=== PATIENT | male | born 1960 | race African-American/Black ===

== ENCOUNTER 2022-05-05 12:18 | Observation (INO) ==
[2022-05-05 12:44] LABS: Basophils % 0.5 %; Eosinophils # 0.2 K/mcL (0.0-0.6); Eosinophils % 2.8 %; Hematocrit 49.6 % (37.5-50.1); Immature Granulocytes % 0.5 % (0-4); Lymphocytes # 1.2 K/mcL (0.6-4.6); Lymphocytes % 15.8 %; Mean Corpuscular HGB Conc 32.3 g/dL (31.6-35.5); Mean Corpuscular Hemoglobin 28.5 pg (28.0-33.3); Mean Corpuscular Volume 88.3 fL (83.0-100.0); Mean Platelet Volume 11.1 fL (9.4-12.4); Monocytes # 0.6 K/mcL (0.0-1.3); Monocytes % 8.1 %; Neutrophils # 5.7 K/mcL (1.6-8.9); Platelet Count 168 K/mcL (140-400); Red Blood Count 5.62 M/mcL (4.19-5.50); Segmented Neutrophils % 72.3 %; White Blood Count 7.9 K/mcL (4.3-11.1)
[2022-05-05 13:06] LABS: BUN/Creatinine Ratio 15 (6-26); Blood Urea Nitrogen 23 mg/dL (8-23); Calcium 8.9 mg/dL (8.6-10.3); Carbon Dioxide 26 mEq/L (23-29); Chloride 105 mEq/L (98-107); Glucose 108 mg/dL (70-105); Osmolality,Calculated 290 (280-300); Potassium 3.9 mEq/L (3.5-5.1); Sodium 138 mEq/L (136-145); Troponin I < 0.03 ng/mL (< 0.04); eGFR For African Americans 56 (> 60); eGFR For Non-African Americans 46 (> 60)
[2022-05-05] MEDS ORDERED: Nitroglycerin 0.4 MG TAB.SUBL SL PRN (14:12)
[2022-05-05] MEDS ORDERED: Perflutren Lipid Microsphere 1.3 ML in 0.9 % Sodium Chloride 8.7 ML IVP PRN (14:12)
[2022-05-05] MEDS ORDERED: Ondansetron 4 MG/2 ML VIAL IVP PRN (14:12)
[2022-05-05] MEDS ORDERED: Aspirin 81 MG TAB.CHEW PO SCH (14:15)
[2022-05-05 19:38] LABS: Amphetamine Screen,Urine Negative ng/mL (Cutoff=1000); Barbiturate Screen,Urine Negative ng/mL (Cutoff=200); Benzodiazepines Screen,Urine Negative ng/mL (Cutoff=200); Cannabinoid Screen,Urine Positive ng/mL (Cutoff = 50); Cocaine Screen,Urine Negative ng/mL (Cutoff= 300); Opiate Screen,Urine Negative ng/mL (Cutoff=300); Phencyclidine Screen,Urine Negative ng/mL (Cutoff=25)
[2022-05-05] MEDS: Gabapentin 300 MG CAPSULE PO SCH (21:01)
[2022-05-05] MEDS: Temazepam 15 MG CAPSULE PO SCH (21:03)
[2022-05-06 03:33] LABS: Basophils # 0.1 K/mcL (0.0-0.2); Basophils % 0.8 %; Eosinophils # 0.3 K/mcL (0.0-0.6); Hematocrit 52.2 % (37.5-50.1); Hemoglobin 16.2 g/dL (12.9-16.9); Immature Granulocytes % 0.4 % (0-4); Lymphocytes # 1.9 K/mcL (0.6-4.6); Lymphocytes % 26.2 %; Mean Corpuscular Hemoglobin 27.6 pg (28.0-33.3); Mean Corpuscular Volume 88.9 fL (83.0-100.0); Mean Platelet Volume 10.9 fL (9.4-12.4); Monocytes # 0.7 K/mcL (0.0-1.3); Monocytes % 9.1 %; Neutrophils # 4.3 K/mcL (1.6-8.9); Platelet Count 168 K/mcL (140-400); Red Blood Count 5.87 M/mcL (4.19-5.50); Red Cell Distribution Width 15.1 % (11.5-14.5); Segmented Neutrophils % 59.5 %; White Blood Count 7.2 K/mcL (4.3-11.1)
[2022-05-06 03:42] LABS: Prothrombin Time 11.5 Seconds (9.4-12.1)
[2022-05-06 03:52] LABS: Albumin 4.1 g/dL (3.5-5.7); Albumin/Globulin Ratio 1.8 (1.1-2.2); Bilirubin,Total 0.7 mg/dL (0.3-1.0); Calcium 9.3 mg/dL (8.6-10.3); Globulin 2.3 g/dL (2.4-3.5); Potassium 4.2 mEq/L (3.5-5.1); Total Protein 6.4 g/dL (6.4-8.9)
[2022-05-06] MEDS ORDERED: Regadenoson 0.4 MG/5 ML SYRINGE IVP ONE (06:13)
[2022-05-06] MEDS: 0.9 % Sodium Chloride 1,000 ML IVC SCH ×2 (09:08→20:43)
[2022-05-06] MEDS: Aspirin 81 MG TAB.CHEW PO SCH (09:08)
[2022-05-06] MEDS: Gabapentin 300 MG CAPSULE PO SCH ×2 (09:09→20:42)
[2022-05-06] MEDS: ALPRAZolam 0.25 MG TABLET PO PRN (18:30)
[2022-05-06] MEDS: Temazepam 15 MG CAPSULE PO SCH (20:40)
[2022-05-06] MEDS ORDERED: *HR* Heparin 5,000 UNIT/ML VIAL IVP PRN ×2 (21:36)
[2022-05-06] MEDS ORDERED: *HR* Heparin 5,000 UNIT/ML VIAL IVP ONE (21:36)
[2022-05-06 22:18] LABS: Hematocrit 48.5 % (37.5-50.1); Hemoglobin 15.7 g/dL (12.9-16.9); Mean Corpuscular HGB Conc 32.4 g/dL (31.6-35.5); Mean Corpuscular Hemoglobin 28.2 pg (28.0-33.3); Mean Corpuscular Volume 87.2 fL (83.0-100.0); Mean Platelet Volume 11.4 fL (9.4-12.4); Platelet Count 160 K/mcL (140-400); Red Blood Count 5.56 M/mcL (4.19-5.50); Red Cell Distribution Width 15.1 % (11.5-14.5); White Blood Count 7.5 K/mcL (4.3-11.1)
[2022-05-06 22:26] LABS: Heparin anti-factor XA UFH < 0.04 IU/mL (0.30-0.70)
[2022-05-06 22:27] LABS: Prothrombin Time 11.4 Seconds (9.4-12.1)
[2022-05-06] MEDS: Heparin 25,000UNIT/250ML 1/2NS 25,000 UNIT/250 ML IV.SOLN IVC SCH (22:29)
[2022-05-07] MEDS: 0.9 % Sodium Chloride 1,000 ML IVC SCH ×2 (08:24→21:43)
[2022-05-07] MEDS: Aspirin 81 MG TAB.CHEW PO SCH (08:24)
[2022-05-07] MEDS: ALPRAZolam 0.25 MG TABLET PO PRN ×2 (08:31→16:33)
[2022-05-07 11:23] LABS: Basophils % 0.5 %; Eosinophils # 0.2 K/mcL (0.0-0.6); Eosinophils % 3.1 %; Hematocrit 50.4 % (37.5-50.1); Immature Granulocytes % 0.2 % (0-4); Lymphocytes # 1.3 K/mcL (0.6-4.6); Lymphocytes % 21.2 %; Mean Corpuscular HGB Conc 31.7 g/dL (31.6-35.5); Mean Corpuscular Hemoglobin 28.1 pg (28.0-33.3); Mean Corpuscular Volume 88.4 fL (83.0-100.0); Mean Platelet Volume 11.1 fL (9.4-12.4); Monocytes # 0.5 K/mcL (0.0-1.3); Monocytes % 7.6 %; Neutrophils # 4.1 K/mcL (1.6-8.9); Platelet Count 152 K/mcL (140-400); Red Cell Distribution Width 15.2 % (11.5-14.5); Segmented Neutrophils % 67.4 %; White Blood Count 6.1 K/mcL (4.3-11.1)
[2022-05-07 11:41] LABS: BUN/Creatinine Ratio 9 (6-26); Blood Urea Nitrogen 13 mg/dL (8-23); Calcium 8.9 mg/dL (8.6-10.3); Carbon Dioxide 26 mEq/L (23-29); Chloride 109 mEq/L (98-107); Glucose 108 mg/dL (70-105); Osmolality,Calculated 291 (280-300); Potassium 4.6 mEq/L (3.5-5.1); Sodium 140 mEq/L (136-145); eGFR For African Americans > 60 (> 60); eGFR For Non-African Americans 50 (> 60)
[2022-05-07] MEDS: Dorzolamide/Timolol OPTH 10 ML BOTTLE BOTH EYES SCH ×2 (17:40→21:28)
[2022-05-07] MEDS: Latanoprost 2.5 ML BOTTLE BOTH EYES SCH (21:28)
[2022-05-07] MEDS: Temazepam 15 MG CAPSULE PO SCH (21:30)
[2022-05-07] MEDS: Gabapentin 300 MG CAPSULE PO SCH (21:30)
[2022-05-07] MEDS: Heparin 25,000UNIT/250ML 1/2NS 25,000 UNIT/250 ML IV.SOLN IVC SCH (21:42)
[2022-05-08 03:34] LABS: BUN/Creatinine Ratio 9 (6-26); Blood Urea Nitrogen 12 mg/dL (8-23); Calcium 8.3 mg/dL (8.6-10.3); Carbon Dioxide 24 mEq/L (23-29); Chloride 111 mEq/L (98-107); Chol/HDL Ratio 3.3 (0-4.9); Cholesterol 103 mg/dL (< 200); Glucose 89 mg/dL (70-105); HDL Cholesterol 31 mg/dL (40-59); LDL Cholesterol,Calculated 59 mg/dL (< 100); Magnesium 1.7 mg/dL (1.6-2.6); Osmolality,Calculated 289 (280-300); Potassium 4.1 mEq/L (3.5-5.1); Sodium 140 mEq/L (136-145); Triglycerides 67 mg/dL (< 150); eGFR For African Americans > 60 (> 60); eGFR For Non-African Americans 54 (> 60)
[2022-05-08 03:35] LABS: Basophils % 0.6 %; Eosinophils # 0.2 K/mcL (0.0-0.6); Eosinophils % 3.6 %; Hematocrit 46.4 % (37.5-50.1); Hemoglobin 14.6 g/dL (12.9-16.9); Immature Granulocytes % 0.5 % (0-4); Lymphocytes # 1.8 K/mcL (0.6-4.6); Lymphocytes % 28.8 %; Mean Corpuscular HGB Conc 31.5 g/dL (31.6-35.5); Mean Corpuscular Hemoglobin 27.8 pg (28.0-33.3); Mean Corpuscular Volume 88.4 fL (83.0-100.0); Mean Platelet Volume 11.7 fL (9.4-12.4); Monocytes # 0.6 K/mcL (0.0-1.3); Monocytes % 8.9 %; Neutrophils # 3.6 K/mcL (1.6-8.9); Platelet Count 147 K/mcL (140-400); Red Blood Count 5.25 M/mcL (4.19-5.50); Segmented Neutrophils % 57.6 %; White Blood Count 6.3 K/mcL (4.3-11.1)
[2022-05-08 03:45] LABS: Estimated Average Glucose 128 mg/dl; Hemoglobin A1C 6.1 %
[2022-05-08] MEDS: ALPRAZolam 0.25 MG TABLET PO PRN ×2 (06:31→14:42)
[2022-05-08] MEDS: Dorzolamide/Timolol OPTH 10 ML BOTTLE BOTH EYES SCH ×2 (06:32→20:35)
[2022-05-08] MEDS: Aspirin 81 MG TAB.CHEW PO SCH (10:03)
[2022-05-08] MEDS: Latanoprost 2.5 ML BOTTLE BOTH EYES SCH (20:35)
[2022-05-08] MEDS: Temazepam 15 MG CAPSULE PO SCH (20:35)
[2022-05-08] MEDS: Gabapentin 300 MG CAPSULE PO SCH (20:35)
[2022-05-08] MEDS: Heparin 25,000UNIT/250ML 1/2NS 25,000 UNIT/250 ML IV.SOLN IVC SCH (20:36)
[2022-05-09 06:54] LABS: BUN/Creatinine Ratio 9 (6-26); Blood Urea Nitrogen 12 mg/dL (8-23); Calcium 8.6 mg/dL (8.6-10.3); Carbon Dioxide 25 mEq/L (23-29); Chloride 109 mEq/L (98-107); Glucose 87 mg/dL (70-105); Osmolality,Calculated 289 (280-300); Potassium 3.9 mEq/L (3.5-5.1); Sodium 140 mEq/L (136-145); eGFR For African Americans > 60 (> 60); eGFR For Non-African Americans 52 (> 60)
[2022-05-09] MEDS: Aspirin 81 MG TAB.CHEW PO SCH (08:14)
[2022-05-09] MEDS: Dorzolamide/Timolol OPTH 10 ML BOTTLE BOTH EYES SCH (08:14)
[2022-05-09] MEDS ORDERED: *HR* Heparin 10,000 UNIT/10 ML VIAL ONE (13:25)
[2022-05-09] MEDS ORDERED: *HR* FentaNYL (PF) 100 MCG/2 ML VIAL ONE (13:25)
[2022-05-09] MEDS ORDERED: *HR* Midazolam HCl 2 MG/2 ML VIAL ONE ×2 (13:25→14:35)
[2022-05-09] MEDS ORDERED: Nitroglycerin 1,000 MCG/5 ML VIAL IV ONE (13:26)
[2022-05-09] MEDS ORDERED: Heparin 1,000 UNITS/500 mL 500 ML ONE (13:26)
[2022-05-09] MEDS ORDERED: 0.9 % Sodium Chloride 2,000 ML ONE (13:26)
[2022-05-09] MEDS ORDERED: Iopamidol - 370 200 ML INFUS..BTL ONE (13:26)
[2022-05-09 18:27] VITALS: BP 131/88; PULSE 66; TEMP 98.3; O2SAT 97
== END 2022-05-09 18:41 | disposition home or self-care (01) ==
LOC: EMEROOARM 12:18 → 3BNU 12:18 → SUATTDRO 14:20 → 3BNU 14:43
PROVIDERS: ADMIT Hospitalist; ATTEND Hospitalist